=== PATIENT | male | born 1995 | race Caucasian/White ===

== ENCOUNTER 2017-10-09 09:51 | Emergency (ER) | payer OTHER ==
[2017-10-09 10:00] VITALS: TEMP 98
[2017-10-09] MEDS ORDERED: IBUPROFEN 600 MG TAB PO ONE (10:02)
--- NOTE | 2017-10-09 10:24 | EDPHY ---
H & P Stated Complaint: punched wall with Rt hand Time Seen by Provider: 10/09/17 10:14 HPI/ROS: CHIEF COMPLAINT: Punched wall HISTORY OF PRESENT ILLNESS: Patient is a 22-year-old man who got angry and punched a wall. He has pain and a deformity to his right MCP joint. He continues to have full range of motion but has significant pain. Some swelling and a slight abrasion. He denies fight bite injury. REVIEW OF SYSTEMS: Constitutional: denies: chills, fever, recent illness, recent injury EENTM: denies: blurred vision, double vision, nose congestion Respiratory: denies: cough, shortness of breath Cardiac: denies: chest pain, irregular heart rate, lightheadedness, palpitations Gastrointestinal/Abdominal: denies: abdominal pain, diarrhea, nausea, vomiting, blood streaked stools Genitourinary: denies: dysuria, frequency, hematuria, pain Musculoskeletal: See HPI Skin: denies: lesions, rash, jaundice, bruising Neurological: denies: headache, numbness, paresthesia, tingling, dizziness, weakness Hematologic/Lymphatic: denies: blood clots, easy bleeding, easy bruising Immunologic/allergic: denies: HIV/AIDS, transplant EXAM: GENERAL: Well-appearing, well-nourished and in no acute distress. HEAD: Atraumatic, normocephalic. EYES: Pupils equal round and reactive to light, extraocular movements intact, sclera anicteric, conjunctiva are normal. ENT: TMs normal, nares patent, oropharynx clear without exudates. Moist mucous membranes. NECK: Normal range of motion, supple without lymphadenopathy or JVD. LUNGS: Breath sounds clear to auscultation bilaterally and equal. No wheezes rales or rhonchi. HEART: Regular rate and rhythm without murmurs, rubs or gallops. ABDOMEN: Soft, nontender, normoactive bowel sounds. No guarding, no rebound. No masses appreciated. BACK: No CVA tenderness, no spinal tenderness, step-offs or deformities EXTREMITIES: Pain and swelling to right 5th MCP. Normal range of motion. Normal pulses distally. Small abrasion. NEUROLOGICAL: Cranial nerves II through XII grossly intact. Normal speech, normal gait. 5/5 strength, normal movement in all extremities, normal sensation PSYCH: Normal mood, normal affect. SKIN: See above Source: Patient - Medical/Surgical History Hx Asthma: No Hx Chronic Respiratory Disease: No Hx Diabetes: No Hx Cardiac Disease: No Hx Renal Disease: No Hx Cirrhosis: No Hx Alcoholism: No Other PMH: T/A - Family History Significant Family History: No pertinent family hx - Social History Smoking Status: Never smoked Alcohol Use: Sober Drug Use: None Constitutional: Initial Vital Signs Temperature (C) 36.6 C 10/09/17 09:58 Heart Rate 55 L 10/09/17 09:58 Respiratory Rate 20 10/09/17 09:58 Blood Pressure 135/62 H 10/09/17 09:58 O2 Sat (%) 95 10/09/17 09:58 O2 Delivery Mode Room Air Allergies/Adverse Reactions: No Known Allergies Allergy (Unverified 10/09/17 09:58) Home Medications: Medication Instructions Recorded Adderall 10 MG (*) 10/09/17 Trileptal 10/09/17 Medical Decision Making - Diagnostics Imaging Results: Imaging Impressions Hand X-Ray 10/09/17 10:02 Impression: Acute fifth metacarpal fracture. Imaging: Discussed imaging studies w/ bingo caller Radiologist (50 degree angulation) Procedures: Procedure: Splint placement. A ulnar gutter splint was applied. After application of the splint I returned and re-examined the patient. The splint was adequately immobilizing the joint and distal to the splint the patient's circulation and sensation was intact. ED Course/Re-evaluation: Patient has a boxer's fracture of the 5th metacarpal bone. It is less than 60 degrees angulated. He has normal range of motion. Will splint with a ulnar gutter splint and have him follow up with Hand surgery. I have reviewed the images with the patient. He understands and agrees this plan. His wound was cleaned. It is superficial Differential Diagnosis: Partial list of the Differential diagnosis considered include but were not limited to; boxer's fracture, fight bite injury and although unlikely based on the history and physical exam, I also considered tendon laceration, vascular injury. I discussed these differential diagnoses and the plan with the patient as well as the usual and expected course. The patient understands that the diagnosis is provisional and that in medicine we are not always correct and that further workup is often warranted. Usual and customary warnings were given. All of the patient's questions were answered. The patient was instructed to return to the emergency department should the symptoms at all worsen or return, otherwise to followup with the physician as we discussed. - Data Points Medications Given: Discontinued Medications Ibuprofen (Motrin) 600 mg PO EDNOW ONE Stop: 10/09/17 10:03 Last Admin: 10/09/17 10:05 Dose: 600 mg Departure - Departure Disposition: Home, Routine, Self-Care Clinical Impression: Fracture of fifth metacarpal bone of right hand Qualifiers: Encounter type: initial encounter Fracture type: closed Metacarpal location: neck Fracture alignment: displaced Qualified Code(s): S62.336A - Displaced fracture of neck of fifth metacarpal bone, right hand, initial encounter for closed fracture Condition: Fair Instructions: Boxer Fracture (ED) Referrals: Jeet Garcia MD [Medical Doctor] - 5-7 days, call for appt. Stand Alone Forms: Work Excuse
[2017-10-09 10:47] VITALS: BP 137/66; PULSE 75; RESP 18; O2SAT 96
== END 2017-10-09 10:46 | disposition home or self-care (01) ==
LOC: CED 09:51 → EDBD 09:51 → CED 10:46
DX: S62.336A Displaced fracture of neck of fifth metacarpal bone, right hand, initial encounter for closed fracture (principal); W22.8XXA Striking against or struck by other objects, initial encounter
CPT/HCPCS: 73130-PO